=== PATIENT | male | born 1975 | race Caucasian/White ===

== ENCOUNTER 2020-04-19 09:16 | Emergency (ER) | payer OTHER, SELFPAY ==
[2020-04-19 09:19] VITALS: BP 164/91; PULSE 108; RESP 18; TEMP 37.1; O2SAT 97; BMI 29.4
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
== END 2020-04-19 11:15 | disposition home or self-care (01) ==
PROVIDERS: Emergency Provider Emergency Medicine
DX: S16.1XXA Strain of muscle, fascia and tendon at neck level, initial encounter (principal); V43.52XA Car driver injured in collision with other type car in traffic accident, initial encounter; Y92.410 Unspecified street and highway as the place of occurrence of the external cause
CPT/HCPCS: 72040; 99284